=== PATIENT | female | born 1995 ===

== ENCOUNTER 2025-11-06 01:39 | Emergency (ER) | payer MEDICAID ==
[~2025-11-06] VITALS: Ht 172.7 cm; Wt 86.4 kg
[2025-11-06 02:00] VITALS: TEMP 97.9
[2025-11-06 03:23] VITALS: BP 129/83
[2025-11-06 03:45] VITALS: PULSE 74; RESP 18; O2SAT 99
[2025-11-06] MEDS: ALBUTEROL SULFATE HFA 90 MCG/PUFF 8 GM INHALER IH ONE (03:52)
[2025-11-06 04:14] LABS: PLATELET COUNT (AUTO) 285 K/uL (150-450); RED BLOOD CELL COUNT(AUTO) 4.58 MIL/uL (4.00-5.20); RED CELL DISTRIBUTION WIDTH 15.0 % (11.5-14.5); WHITE BLOOD COUNT (AUTO) 8.9 K/uL (4.5-11.0)
[2025-11-06 04:21] LABS: CALCIUM, TOTAL 8.7 mg/dL (8.8-10.5); CREATININE 0.66 mg/dL (0.60-1.30); GLOMERULAR FILTR. RATE CALC > 60 mL/min (>60); GLUCOSE,RANDOM 117 mg/dL (70-110); SODIUM SERUM 142 mmol/L (136-145); UREA NITROGEN, BLOOD 9 mg/dL (7-18)
[2025-11-06] MEDS: AMOXICILLIN TRIHYDRATE 250 MG CAPSULE PO ONE (05:30)
[2025-11-06] MEDS: AZITHROMYCIN 500 MG TABLET PO ONE (05:30)
== END 2025-11-06 05:31 | disposition home or self-care (01) ==
LOC: EMS 01:56
DX: J18.9 Pneumonia, unspecified organism (principal); J45.909 Unspecified asthma, uncomplicated; F12.90 Cannabis use, unspecified, uncomplicated; Z90.49 Acquired absence of other specified parts of digestive tract
CPT/HCPCS: 99283; 80048; 83880; 84703; 85025; 85379; 36415; 94640; J0456; J3535